=== PATIENT | female | born 1970 | race Caucasian/White ===

== ENCOUNTER 2021-04-19 10:32 | Emergency (ER) | payer OTHER, SELFPAY ==
--- NOTE | ~2021-04-19 | XR_ITS ---
EXAMINATION: XR knee RT 2V DATE: 04/19/2021 11:49 INDICATION: Fall onto the right knee TECHNIQUE: AP and crosstable lateral views of the right knee. COMPARISON: None. FINDINGS: Bone alignment is normal. No fracture. Joint spaces appear normal on nonweightbearing imaging. No rig ht knee joint effusion. Small enthesophyte at the proximal pole of the patella. Soft tissues are unre markable. IMPRESSION: 1. Negative right knee radiographs. Reviewed, dictated and finalized at location B. F RELAY TESTER
[2021-04-19 10:52] VITALS: BP 135/82; PULSE 89; RESP 16; TEMP 36.4; O2SAT 97
--- NOTE | 2021-04-19 10:58 | ED.LOWEXIN ---
HPI - Extremity Injury (Lower) General Chief Complaint: Extremity Injury, Lower Stated Complaint: pain in right leg Source: patient Mode of arrival: ambulatory Limitations: no limitations History of Present Illness HPI Narrative: this is a 51-year-old female that an injury to her right knee that occurred this past Friday having pain with some movement with flexion and extension, with mild swelling with no redness no erythema tenderness with palpation. complaint: knee injury Onset (ago): day(s) Injury: Right: knee Type of Injury: blunt and inversion Place: home Severity: mild Severity scale (1-10): 2 Relieving factors: NSAID Exacerbating factors: weight bearing and movement Context: fall Review of Systems Review of Systems: All systems reviewed & are unremarkable except as noted in HPI and below PMFSH Past Medical History Medical History Depression Exam Const: General: no acute distress and alert Orientation/consciousness: patient oriented x3 Limitations: altered mental status HENMT: Head: normal to inspection Eyes: Pupils: Equal, round and reactive pupils present Neck: Neck: normal visual inspection and no lymphadenopathy Chest: Chest palpation & inspection: normal inspection of the chest Resp: Effort & Inspection: normal respiratory effort Auscultation: clear to auscultation bilaterally Cardio: Rate: regular rate Rhythm: regular rhythm GI: GI Palp: Yes Soft to palpation Percussion: Yes normal to percussion : General: Yes no CVA tenderness Urinary Catheter: Urinary Catheter: patent and draining Back/Spine/Pelvis: Back: no CVA tenderness Skin: General skin exam: normal color Rashes: no rashes Neuro: General: patient oriented x3 Extrem: General: normal to inspection and no pedal edema Psych: Mental Status: mental status grossly normal Affect: normal affect Course Course Emergency Course: patient declined pain medication, the patient did take some [id number] medication and currently pain level is well controlled x-rays reviewed with patient. Vital Signs Vital signs: Vital Signs Temperature 36.4 C L 04/19/21 10:52 Pulse Rate 89 04/19/21 10:52 Respiratory Rate 16 04/19/21 10:52 Blood Pressure 135/82 04/19/21 10:52 Pulse Oximetry 97 04/19/21 10:52 Temperature 36.4 C L 04/19/21 10:52 Pulse Rate 89 04/19/21 10:52 Respiratory Rate 16 04/19/21 10:52 Blood Pressure 135/82 04/19/21 10:52 Pulse Oximetry 97 04/19/21 10:52 Critical Care Time Critical Care Time Critical Care Time: No Discharge Plan Discharge Clinical Impression: Knee strain Qualifiers: Encounter type: initial encounter Laterality: right Qualified Code(s): S86.911A - Strain of unspecified muscle(s) and tendon(s) at lower leg level, right leg, initial encounter Patient Disposition: Home, Self-Care Condition: Stable Instructions: Antibiotic Form Additional Instructions: Follow-up with primary care physician within 1 week for further evaluation treatment. Can take Tylenol or Motrin. Follow-up/Referrals: UNKNOWN,DOCTOR [Primary Care Provider] - Time of Disposition: 12:08
--- NOTE | 2021-04-19 12:11 | PC.NURSE ---
NO ASAEL WRAP APPLIED, PT HAS OWN KNEE BRACE FROM HOME
[2021-04-19 12:12] VITALS: BP 135/82; PULSE 89; RESP 20; TEMP 37.1; O2SAT 96
== END 2021-04-19 12:16 | disposition home or self-care (01) ==
PROVIDERS: Emergency Provider Emergency Medicine
DX: S86.911A Strain of unspecified muscle(s) and tendon(s) at lower leg level, right leg, initial encounter (principal)
CPT/HCPCS: 73560; 99282; 99283

== ENCOUNTER 2021-05-03 15:39 | Emergency (ER) | payer OTHER, SELFPAY ==
--- NOTE | ~2021-05-03 | XR_ITS ---
XR hand LT min 3V 05/03/2021 16:07 INDICATION: Left hand pain PROCEDURE: 4 views left hand COMPARISON: No prior studies for comparison. FINDINGS: Fracture, dislocation or subluxation is not identified. The soft tissues appear within norm al limits. No foreign bodies are identified. IMPRESSION: 1: NO ACUTE BONE OR JOINT ABNORMALITY IDENTIFIED. Reviewed, dictated and finalized at location A. KJACK PIT BOSS
[2021-05-03 15:54] VITALS: BP 144/110; PULSE 110; RESP 20; TEMP 36.3; O2SAT 96
--- NOTE | 2021-05-03 16:00 | ED.GENADULT ---
HPI - General Adult General Chief complaint: Extremity Injury, Upper Stated complaint: hand injury Source: patient and family Mode of arrival: ambulatory Limitations: no limitations History of Present Illness HPI narrative: Viky is a 51F that presented to the ED after a chunk of ice fell on the back of her left hand. She had no other injuries and has no other concerns. Related Data Allergies Allergy/AdvReac Type Severity Reaction Status Date / Time No Known Allergies Allergy Verified 05/03/21 16:20 Review of Systems Constitutional: Constitutional: Reports no additional constitutional complaints Eyes: Eyes: Reports no additional eye complaints ENT: Reports system reviewed and no additional complaints, except as documented Cardiovascular: Cardiovascular: Reports no additional cardiovascular complaints Respiratory: Respiratory: Reports no additional respiratory complaints Gastrointestinal: Gastrointestinal: Reports no additional gastrointestinal complaints Genitourinary: Genitourinary: Reports no additional female genitourinary complaints Musculoskeletal: Musculoskeletal: Reports as per HPI Integumentary/Breasts: Skin/Breast: Reports system reviewed and no additional complaints, except as docu Neurologic: Reports system reviewed and no additional complaints, except as documented Psychiatric: Psychiatric: Reports no additional psychiatric complaints Endocrine: Endocrine: Reports no additional endocrine complaints Hematologic/Lymphatic: Hematologic/Lymphatic: Reports no additional hematologic/lymphatic complaints Allergic/Immunologic: Allergic/Immunologic: Reports no additional allergic/immunologic complaints [facility] Past Medical History Medical History Depression Exam Const: General: no acute distress and alert Orientation/consciousness: patient oriented x3 Limitations: No altered mental status HENMT: Head: normal to inspection Mouth: Yes Normal oral and palatal mucosa present Other: normocephalic, atraumatic Eyes: Conjunctivae: conjunctivae normal Pupils: Equal, round and reactive pupils present Neck: Neck: normal visual inspection Chest: Chest palpation & inspection: normal inspection of the chest Resp: Effort & Inspection: normal respiratory effort Cardio: Rate: regular rate Back/Spine/Pelvis: Back: no CVA tenderness Skin: General skin exam: normal color Rashes: no rashes Neuro: General: patient oriented x3, moves all extremities and CN's II-XI intact bilaterally Extrem: General: normal to inspection Other: A few scattered small very shallow lacerations on the dorsal side of the 2nd and 3rd digits of the left hand. 2nd and 3rd digits swollen around the knuckle. normal capillary rerfill. She says she cannot move them because of pain. However, when encouraged she can wiggle all the digits of her left hand. Psych: Mental Status: mental status grossly normal Course Course Emergency Course: She declined pain meds. Ordered radiographs. XR hand LT min 3V 05/03/2021 16:07 INDICATION: Left hand pain PROCEDURE: 4 views left hand COMPARISON: No prior studies for comparison. FINDINGS: Fracture, dislocation or subluxation is not identified. The soft tissues appear within normal limits. No foreign bodies are identified. IMPRESSION: 1: NO ACUTE BONE OR JOINT ABNORMALITY IDENTIFIED. Vital Signs Vital signs: Vital Signs Temperature 97.4 F L 05/03/21 15:54 Pulse Rate 110 H 05/03/21 15:54 Respiratory Rate 20 05/03/21 15:54 Blood Pressure 144/110 H 05/03/21 15:54 Pulse Oximetry 96 05/03/21 15:54 Temperature 97.4 F L 05/03/21 15:54 Pulse Rate 110 H 05/03/21 15:54 Respiratory Rate 20 05/03/21 15:54 Blood Pressure 144/110 H 05/03/21 15:54 Pulse Oximetry 96 05/03/21 15:54 Medical Decision Making Vital Signs Vital Signs: Vital Signs Temperature 97.4 F L 05/03/21 15:54 Pulse Rate 110 H 05/03/21 1
--- NOTE | 2021-05-03 16:15 | PC.NURSE ---
Wound cleansed with normal saline, hib-clens, pack of 4x4 gauze. Pt tolerated well.
[2021-05-03 16:18] VITALS: PULSE 89; RESP 20; O2SAT 97
== END 2021-05-03 16:20 | disposition home or self-care (01) ==
PROVIDERS: Emergency Provider Family Medicine
DX: S60.222A Contusion of left hand, initial encounter (principal); W22.8XXA Striking against or struck by other objects, initial encounter
CPT/HCPCS: 73130; 99282; 99283

== ENCOUNTER 2021-09-06 18:56 | Emergency (ER) | payer OTHER, SELFPAY ==
--- NOTE | ~2021-09-06 | XR_ITS ---
EXAMINATION: XR hand RT 2V INDICATION: Right hand pain TECHNIQUE: Two views of the right hand are obtained. COMPARISON: None available FINDINGS: There is no fracture, dislocation, or subluxation. The bones, soft tissues, and joint space s are normal. IMPRESSION: 1. No acute osseous abnormality. Reviewed, dictated and finalized at location F.
--- NOTE | ~2021-09-06 | XR_ITS ---
EXAMINATION: XR hand LT 2V INDICATION: Left hand pain TECHNIQUE: Two views of the left hand are obtained. COMPARISON: 05/03/2021 FINDINGS: There is no fracture, dislocation, or subluxation. The bones, soft tissues, and joint space s are normal. IMPRESSION: 1. No acute osseous abnormality. Reviewed, dictated and finalized at location F.
[2021-09-06 19:15] VITALS: BP 159/101; PULSE 84; RESP 20; TEMP 36.5; O2SAT 96
--- NOTE | 2021-09-06 19:42 | ED.UPPEXIN ---
HPI - Extremity Injury (Upper) General Chief Complaint: Extremity Injury, Upper Stated Complaint: pain in both hands Source: patient Mode of arrival: ambulatory Limitations: no limitations History of Present Illness HPI narrative: this is a 51-year-old female with no significant past medical history has a swollen tender bilateral proximal fingers that started 2 to 3 days ago after she hyperextends them while lifting a heavy object, has good range of motion although slightly diminished secondary to swelling has strong brisk radial pulse bilaterally no fever chills. complaint: injury to: left, right, hand and finger Onset (ago): day(s) Other Extremity Injury: Bilateral: fingers ( swelling and pain with movement) Related Data Home Medications Medication Instructions Recorded Confirmed No Home Medications 09/06/21 09/06/21 Allergies Allergy/AdvReac Type Severity Reaction Status Date / Time No Known Allergies Allergy Verified 09/06/21 19:28 Review of Systems Review of Systems: All systems reviewed & are unremarkable except as noted in HPI and below PMFSH Past Medical History Medical History Depression Exam Const: General: no acute distress and alert Orientation/consciousness: patient oriented x3 Limitations: altered mental status HENMT: Head: normal to inspection Eyes: Conjunctivae: conjunctivae normal Pupils: Equal, round and reactive pupils present EOM: EOMs intact bilaterally Neck: Neck: normal visual inspection and no lymphadenopathy Chest: Chest palpation & inspection: normal inspection of the chest Resp: Effort & Inspection: normal respiratory effort Auscultation: clear to auscultation bilaterally Cardio: Rate: regular rate Rhythm: regular rhythm GI: GI Palp: Yes Soft to palpation Percussion: Yes normal to percussion : General: Yes no CVA tenderness Urinary Catheter: Urinary Catheter: patent and draining Back/Spine/Pelvis: Back: no CVA tenderness Skin: General skin exam: normal color Rashes: no rashes Neuro: General: patient oriented x3 and moves all extremities Extrem: General: normal to inspection and edema Other: Bilateral finger Psych: Appearance: grossly normal Mental Status: mental status grossly normal Affect: normal affect Course Course Emergency Course: patient received 80mg IM Depo-Medrol patient states that she has improvement. Critical Care Time Critical Care Time Critical Care Time: No Discharge Plan Discharge Clinical Impression: Finger sprain Qualifiers: Encounter type: initial encounter Finger: thumb Sprain of finger site: other site Laterality: unspecified laterality Qualified Code(s): S63.689A - Other sprain of unspecified thumb, initial encounter Patient Disposition: Home, Self-Care Condition: Stable Instructions: Antibiotic Form, Finger Sprain (ED) Additional Instructions: take medicine as prescribed, only take Tylenol extra-strength as needed for pain. Prescriptions: New prednisone 20 mg tablet 20 mg PO DAILY 5 Days Qty: 5 RF: 0 No Action No Home Medications RF: 0 Follow-up/Referrals: UNKNOWN,DOCTOR [Primary Care Provider] - Time of Disposition: 20:02
[2021-09-06] MEDS: methylPREDNISolone ACETATE 40 MG/ML VIAL 80 MG IM (19:56)
[2021-09-06 20:20] VITALS: BP 159/102; PULSE 81; RESP 20; TEMP 36.4; O2SAT 97
== END 2021-09-06 20:28 | disposition home or self-care (01) ==
PROVIDERS: Emergency Provider Emergency Medicine
DX: S63.619A Unspecified sprain of unspecified finger, initial encounter (principal); X50.9XXA Other and unspecified overexertion or strenuous movements or postures, initial encounter
CPT/HCPCS: 73120; 96372; 99284; J1030

== ENCOUNTER 2021-10-08 16:13 | Emergency (ER) | payer OTHER, SELFPAY ==
--- NOTE | ~2021-10-08 | XR_ITS ---
EXAMINATION: XR chest 1V portable 10/08/2021 16:53 INDICATION: Shortness of breath and cough PROCEDURE: AP portable chest COMPARISON: No prior studies for comparison. FINDINGS: The lungs are clear. The cardiomediastinal silhouette is within normal limits. There are no pleural effusions. There is no pneumothorax suspected. There are calcified granulomas in the mid and upper lungs. IMPRESSION: 1: NO ACUTE CARDIOPULMONARY DISEASE. Reviewed, dictated and finalized at location A.
[2021-10-08 16:20] VITALS: BP 145/90; PULSE 98; RESP 22; TEMP 36.1; O2SAT 97
--- NOTE | 2021-10-08 16:43 | ECG_ITS ---
Measurements Intervals [place] Rate: 85 P: 34 GA: 140 QRS: 46 QRSD: 92 T: 57 QT: 388 QTc: 464 Interpretive Statements SINUS RHYTHM MINIMAL Q WAVES- ANTEROLAT/INF LEADS BORDERLINE ECG Electronically Signed On 10-08-2021 20:24:56 CDT by Marco Jorgensen D.O.
--- NOTE | 2021-10-08 16:45 | ED.GENADULT ---
HPI - General Adult General Chief complaint: Upper Respiratory Infection Stated complaint: Chronic cough History of Present Illness HPI narrative: Viky is a 51F with a PMH of tobacco abuse, COPD, presented to the ED with a week of worsening cough and SOB. Despite NyQuil and Mucinex she cannot stop coughing and her dyspnea is getting worse. The cough is not productive. There have been no fevers, chills,CP, N/V or lightheadedness. l Related Data Allergies Allergy/AdvReac Type Severity Reaction Status Date / Time No Known Allergies Allergy Verified 10/08/21 16:39 Review of Systems Constitutional: Constitutional: Reports no additional constitutional complaints, Denies chills and Denies fatigue Eyes: Eyes: Reports no additional eye complaints ENT: Reports system reviewed and no additional complaints, except as documented Cardiovascular: Cardiovascular: Reports no additional cardiovascular complaints Respiratory: Respiratory: Reports as per HPI Gastrointestinal: Gastrointestinal: Reports no additional gastrointestinal complaints Genitourinary: Genitourinary: Reports no additional female genitourinary complaints Musculoskeletal: Musculoskeletal: Reports no additional musculoskeletal complaints Integumentary/Breasts: Skin/Breast: Reports system reviewed and no additional complaints, except as docu Neurologic: Reports system reviewed and no additional complaints, except as documented Psychiatric: Psychiatric: Reports no additional psychiatric complaints Endocrine: Endocrine: Reports no additional endocrine complaints Hematologic/Lymphatic: Hematologic/Lymphatic: Reports no additional hematologic/lymphatic complaints Allergic/Immunologic: Allergic/Immunologic: Reports no additional allergic/immunologic complaints [facility] Past Medical History Medical History Depression Exam Const: Nutritional Appearance: well nourished Orientation/consciousness: patient oriented x3 HENMT: Head: normal to inspection General nose exam: Normal external nose present Mouth: Yes Normal oral and palatal mucosa present Eyes: Conjunctivae: conjunctivae normal Pupils: Equal, round and reactive pupils present Neck: Neck: normal visual inspection Chest: Chest palpation & inspection: normal inspection of the chest Resp: Effort & Inspection: normal respiratory effort Other: Prolonged expiratory phase with wheezing Cardio: Rate: regular rate Rhythm: regular rhythm Heart sounds: Murmur heart sound present systolic GI: Other: normal bowel sounds Skin: General skin exam: normal color Neuro: General: patient oriented x3 and moves all extremities Cranial nerves: Yes Nystagmus not present Speech: normal speech Extrem: General: normal to inspection Psych: Mental Status: mental status grossly normal Course Course Emergency Course: Ordered labs, CXR, breathing treatment. EXAMINATION: XR chest 1V portable 10/08/2021 16:53 INDICATION: Shortness of breath and cough PROCEDURE:? AP portable chest COMPARISON: No prior studies for comparison. FINDINGS: The lungs are clear.? The cardiomediastinal silhouette is within normal limits.? There are no pleural effusions.? There is no pneumothorax suspected.? There are calcified granulomas in the mid and upper lungs. IMPRESSION: 1:? NO ACUTE CARDIOPULMONARY DISEASE. EKG showed NSR with a rate of 85, normal axis and no ectopy or ST elevation. Labs were largely unremarkable. She was given prednisone and azithromycin for a COPD exacerbation Vital Signs Vital signs: Vital Signs Temperature 96.9 F L 10/08/21 16:20 Pulse Rate 98 10/08/21 16:20 Respiratory Rate 22 H 10/08/21 16:20 Blood Pressure 145/90 H 10/08/21 16:20 Pulse Oximetry 97 10/08/21 16:20 Oxygen Delivery Room Air 10/08/21 16:20 Temperature 97 F L 10/08/21 17:25 Pulse Rate 90 10/08/21 18:15 Respiratory Rate 18 10/08/21 18:15
[2021-10-08 17:16] LABS: Basophils Absolute Auto 0.07 K/mm3 (0.00-0.10); Basophils Percent Auto 0.7 % (0.0-1.0); Eosinophils Absolute Auto 0.19 K/mm3 (0.02-0.50); Hematocrit 44.8 % (35.0-49.0); Hemoglobin 13.4 g/dL (12.0-15.0); Immature Granulocyte Absolute 0.05 K/mm3 (0.00-0.00); Immature Granulocyte Percent A 0.5 % (0.0-0.0); Lymphocytes Absolute Auto 2.49 K/mm3 (1.10-4.50); Lymphocytes Percent Auto 26.6 % (18.0-42.0); Mean Corpuscular HGB Conc 29.9 g/dL (32.0-36.0); Mean Corpuscular Hemoglobin 26.5 pg (27.0-31.0); Mean Corpuscular Volume 88.5 fL (78.0-102.0); Mean Platelet Volume 9.9 fl (9.2-11.8); Monocytes Absolute Auto 0.56 K/mm3 (0.10-0.90); Neutrophils Percent Auto 64.2 % (50.0-70.0); Platelet Count Result 324 K/mm3 (150-420); Red Blood Count 5.06 M/mm3 (4.20-5.40); White Blood Count 9.4 K/mm3 (4.8-10.8)
[2021-10-08 17:25] VITALS: BP 140/77; PULSE 83; RESP 18; TEMP 36.1; O2SAT 96
[2021-10-08 17:29] LABS: Prothrombin Time 10.5 Seconds (9.50-12.10)
[2021-10-08 17:40] LABS: Influenza Control Valid (Valid)
[2021-10-08 17:40] LABS: SARS-CoV-2 Ag Negative (Negative)
[2021-10-08 17:42] LABS: Alanine Aminotransferase 33 U/L (14-59); Albumin Level 2.9 g/dL (3.4-5.0); Alkaline Phosphatase 115 U/L (46-116); Anion Gap 6 mmol/L (8-16); Aspartate Amino Transferase 15 U/L (15-37); Bilirubin,Total 0.2 mg/dL (0.00-1.00); Blood Urea Nitrogen 19 mg/dL (7-18); Carbon Dioxide 30 mmol/L (21-32); Chloride 102 mmol/L (98-108); Estimated CRCL calculation 81 ml/min; Estimated Glomerular Filt Rate > 60; Glucose 113 mg/dL (70-99); NT Pro B Type Natriuretic Pept 102 pg/mL (0-125); Osmolality Calculated 289 mOsm/kg (285-295); Potassium 3.6 mmol/L (3.5-5.1); Sodium 138 mmol/L (136-145); Total Protein 7.4 g/dL (6.4-8.2); Troponin I 19.2 ng/L (0.00-60.4)
[2021-10-08] MEDS: AZITHROMYCIN 250 MG TABLET 500 MG PO (18:03)
[2021-10-08] MEDS: predniSONE 40 MG, predniSONE 10 MG 50 MG PO (18:03)
[2021-10-08 18:15] VITALS: BP 144/84; PULSE 90; RESP 18; O2SAT 97
== END 2021-10-08 18:20 | disposition home or self-care (01) ==
PROVIDERS: Emergency Provider Family Medicine
DX: J44.1 Chronic obstructive pulmonary disease with (acute) exacerbation (principal); Z20.822 Contact with and (suspected) exposure to COVID-19
CPT/HCPCS: 71045; 80053; 83880; 84484; 85025; 85610; 87426; 87804; 93005; 99284; A9270; C9803; J7512

== ENCOUNTER 2022-12-06 16:02 | Emergency (ER) | payer OTHER, SELFPAY ==
--- NOTE | ~2022-12-06 | CT_ITS ---
EXAMINATION: CT abdomen pelvis wo con DATE: 12/06/2022 17:38 INDICATION: Hematuria TECHNIQUE: Computed tomography (CT) of the abdomen and pelvis was performed without intravenous contr ast. The dose-length product was 1662.79 mGy-cm. Automated exposure control and iterative reconstruct ion technique were employed. COMPARISON: None. FINDINGS: Borderline heart size. Lingular atelectasis. No significant pleural or pericardial effusion . Calcified granuloma of the spleen. The liver, pancreas, adrenal glands and kidneys are unremarkable. No renal/ureteral stones or hydronephrosis. Nonobstructive bowel pattern. Gallbladder is present. No free air or free fluid. No abnormal pelvic masses or fluid collections. No acute osseous abnormality. IMPRESSION: 1. No acute abdominal abnormality. Reviewed, dictated and finalized at location A.
[2022-12-06 16:02] VITALS: BP 133/89; PULSE 114; RESP 20; TEMP 37.1; O2SAT 95
--- NOTE | 2022-12-06 16:07 | ED.FEMALEGU ---
HPI - Female Genitourinary General Chief complaint: Urogenital-Female Stated complaint: urinary frequency and blood in urine Time Seen by Provider: 12/06/22 16:07 Source: patient Mode of arrival: ambulatory Limitations: no limitations History of Present Illness HPI Narrative: 52-year-old female obesity, COPD, kidney infection many years ago presents to the ER with a 3 hour history of -- dysuria and hematuria no fever or chills no abdominal pain -- bladder spasms MD elicited complaint: dysuria and UTI Pertinent past history: pyelonephritis ( pyelonephritis 15 years ago.) Onset (ago): hour(s) ( symptoms started 3 hours ago) Urinary symptoms: Dysuria, Urgency, Frequency and Hematuria Exacerbating factors: none Relieving factors: none Associated symptoms: denies other symptoms Treatment prior to arrival: none Possible : other ( Patient is menopausal) Related Data Allergies Allergy/AdvReac Type Severity Reaction Status Date / Time No Known Allergies Allergy Verified 12/06/22 16:08 Review of Systems Review of Systems: All systems reviewed & are unremarkable except as noted in HPI and below Constitutional: Constitutional: Reports as per HPI and Reports no additional constitutional complaints Eyes: Eyes: Reports as per HPI and Reports no additional eye complaints ENT: Reports system reviewed and no additional complaints, except as documented and Reports as per HPI Cardiovascular: Cardiovascular: Reports as per HPI and Reports no additional cardiovascular complaints Respiratory: Respiratory: Reports as per HPI, Reports cough and Reports dyspnea Gastrointestinal: Gastrointestinal: Reports as per HPI and Reports no additional gastrointestinal complaints Genitourinary: Genitourinary: Reports hematuria, Reports nocturia and Reports dysuria Musculoskeletal: Musculoskeletal: Reports no additional musculoskeletal complaints and Reports as per HPI Integumentary/Breasts: Skin/Breast: Reports system reviewed and no additional complaints, except as docu and Reports as per HPI Neurologic: Reports system reviewed and no additional complaints, except as documented and Reports as per HPI Psychiatric: Psychiatric: Reports no additional psychiatric complaints and Reports as per HPI Endocrine: Endocrine: Reports no additional endocrine complaints and Reports as per HPI Hematologic/Lymphatic: Hematologic/Lymphatic: Reports no additional hematologic/lymphatic complaints and Reports as per HPI Allergic/Immunologic: Allergic/Immunologic: Reports no additional allergic/immunologic complaints and Reports as per HPI [facility] Past Medical History Medical History (Updated 12/06/22 @ 18:12 by Ras Sepulveda MD) COPD (chronic obstructive pulmonary disease) Depression Exam Const: General: no acute distress Nutritional Appearance: obese Orientation/consciousness: patient oriented x3 Limitations: no limitations HENMT: Head: normal to inspection Ears: external ears normal Face/Nose/Sinus: Normal external nose present Face and sinus: normal facial exam Mouth: Yes Normal oral and palatal mucosa present Throat: posterior oropharynx normal Eyes: Conjunctivae: conjunctivae normal Pupils: Equal, round and reactive pupils present EOM: EOMs intact bilaterally Direct Ophthalmoscopy: no photophobia Neck: Neck: normal visual inspection, no lymphadenopathy and no meningeal signs Chest: Chest palpation & inspection: normal inspection of the chest Resp: Effort & Inspection: normal respiratory effort Auscultation: diminished lung sounds Cardio: Rate: regular rate Rhythm: regular rhythm GI: GI Palp: Yes Soft to palpation Auscultation: normal bowel sounds Other: no tenderness/rigidity /rebound : General: Yes no CVA tenderness Back/Spine/Pelvis: Back: no CVA tenderness Skin: General skin exam: normal color Rashes: no rashes Wounds: no wounds Neuro: General: patient oriented x3, moves all extremities, no menin
[2022-12-06 16:09] VITALS: BP 133/89; PULSE 110; RESP 22; TEMP 37.1; O2SAT 96
[2022-12-06 16:25] LABS: Appearance Urine Cloudy (Clear); Bilirubin Urine 1+ (Negative); Blood Urine 3+ (Negative); Glucose Urine UA Trace (Negative); Ketones Urine 2+ (Negative); Leukocyte Esterase Ur 3+ LEU/UL (Negative); Nitrate Urine Positive (Negative); Protein Urine 3+ (Negative); Urobilinogen Urine >=8.0 mg/dL (0.2-1.0)
[2022-12-06] MEDS: LACTATED RINGERS 1,000 ML 999 ML IV CONT (16:27)
[2022-12-06] MEDS: CIPROFLOXACIN 400 MG/D5W 200ML 200 ML 200 MG IVPB (16:28)
[2022-12-06 16:33] LABS: Add Urine Microscopic? YES; Color Urine Dark Red (Yellow); RBC Urine >100 /hpf (0-2); Squamous Epithelial Cell Urine Rare /hpf (Few)
[2022-12-06 16:34] LABS: Bacteria Urine 1+ /hpf
[2022-12-06 16:41] LABS: Basophils Absolute Auto 0.05 K/mm3 (0.00-0.10); Basophils Percent Auto 0.5 % (0.0-1.0); Eosinophils Absolute Auto 0.15 K/mm3 (0.02-0.50); Eosinophils Percent Auto 1.4 % (1.0-6.0); Hematocrit 39.8 % (35.0-49.0); Hemoglobin 12.1 g/dL (12.0-15.0); Immature Granulocyte Absolute 0.06 K/mm3 (0.00-0.00); Immature Granulocyte Percent A 0.6 % (0.0-0.0); Lymphocytes Percent Auto 15.9 % (18.0-42.0); Mean Corpuscular HGB Conc 30.4 g/dL (32.0-36.0); Mean Corpuscular Hemoglobin 25.7 pg (27.0-31.0); Mean Corpuscular Volume 84.5 fL (78.0-102.0); Mean Platelet Volume 10.4 fl (9.2-11.8); Monocytes Absolute Auto 0.66 K/mm3 (0.10-0.90); Monocytes Percent Auto 6.2 % (2.0-11.0); Neutrophils Percent Auto 75.4 % (50.0-70.0); Platelet Count Result 357 K/mm3 (150-420); Red Blood Count 4.71 M/mm3 (4.20-5.40); Red Cell Distribution Width 14.8 % (11.6-14.4); White Blood Count 10.7 K/mm3 (4.8-10.8)
[2022-12-06 16:56] LABS: Alanine Aminotransferase 31 U/L (14-59); Albumin Level 3.3 g/dL (3.4-5.0); Alkaline Phosphatase 127 U/L (46-116); Anion Gap 6 mmol/L (8-16); Aspartate Amino Transferase 14 U/L (15-37); Bilirubin,Total 0.5 mg/dL (0.00-1.00); Blood Urea Nitrogen 13 mg/dL (7-18); Carbon Dioxide 31 mmol/L (21-32); Chloride 101 mmol/L (98-108); Estimated Glomerular Filt Rate > 60; Glucose 109 mg/dL (70-99); Osmolality Calculated 287 mOsm/kg (285-295); Sodium 138 mmol/L (136-145); Total Protein 7.6 g/dL (6.4-8.2)
[2022-12-06 16:57] LABS: Partial Thromboplastin Time 27.3 SEC (23.90-30.70); Prothrombin Time 10.7 Seconds (9.50-12.10)
[2022-12-06 17:30] VITALS: BP 161/98; PULSE 97; RESP 18; O2SAT 96
[2022-12-06] MEDS: cloNIDine HCL 0.1 MG TABLET PO (18:37)
[2022-12-06 18:39] VITALS: BP 159/110; PULSE 105; RESP 20; TEMP 37.1; O2SAT 96
--- NOTE | 2022-12-08 14:33 | PC.NURSE ---
final urine culture report reviewed. >100,000 Escherichia Coli. Susceptible to Cipro. pt prescribed Cipro at discharge. no change in plan of care.
== END 2022-12-06 18:41 | disposition home or self-care (01) ==
PROVIDERS: Emergency Provider Internal Medicine Critical Care Medicine
DX: N30.01 Acute cystitis with hematuria (principal); J44.9 Chronic obstructive pulmonary disease, unspecified
CPT/HCPCS: 36415; 74176; 80053; 81001; 83605; 85025; 85610; 85730; 87077; 87086; 87088; 87186; 96365; 99284; A9270; J0744; J7120